=== PATIENT | male | born 1950 | race Native Hawaiian/Other Pacific Islander ===

== ENCOUNTER 2019-07-25 22:01 | Emergency (ER) | payer MEDICARE ==
[2019-07-25] MEDS ORDERED: ACETAMINOPHEN W/CODEINE 300-30 MG TAB PO ONE (23:31)
--- NOTE | 2019-07-25 23:50 | Emergency Department Report ---
ED General Adult HPI - General Chief complaint: Upper Respiratory Infection Stated complaint: SWEATS, SNEEZING, AND FEVER Time Seen by Provider: 07/25/19 23:30 Source: patient Mode of arrival: Ambulatory Limitations: Language Barrier - History of Present Illness Initial comments: Mr. Liu is a 68 y/o male with hx of hypertension and chronic br onchitis , last tx in this ed 2 weeks ago for same, states he felt better for a few days but symptoms are back. Symptoms described as nasal and sinus congestion, frontal sinus pressure, night sweats, persistent dry cough and upper back pain for the last 1 month . Patient denies dizziness, syncope, chest pain, shortness of breath, abdominal pain, nausea, vomiting, syncope, palpitations, sore throat, change in vision. There is no wheezing or sob. Vital signs noted normal at this time. Pt states unable to follow up with pcp. Onset/Timin -: month(s) Location: head (congestion), chest (cough, ) Severity scale (0 -10): 4 Quality: aching Consistency: intermittent Improves with: none Worsens with: movement Associated Symptoms: cough. denies: confusion, chest pain, diaphoresis, fever/chills, headaches, nausea/vomiting, rash, shortness of breath, syncope, weakness Treatments Prior to Arrival: none - Related Data Previous Rx's Medication Instructions Recorded Last Taken Type Albuterol Sulfate [Proventil Hfa] 1 - 2 puff IH Q6H PRN #1 inh 07/11/19 Unknown Rx Benzonatate [Tessalon Perles] 100 mg PO Q8HR #30 capsule 07/11/19 Unknown Rx Cetirizine HCl [Zyrtec 10mg tab] 10 mg PO DAILY #30 tablet 07/11/19 Unknown Rx DOXYCYCLINE Hyclate [Vibramycin 100 mg PO Q12HR #20 capsule 07/11/19 Unknown Rx CAP] methylPREDNISolone [Medrol 4MG 4 mg PO DAILY #21 tab.ds.pk 07/11/19 Unknown Rx DOSEPAK (21 tabs)] Acetaminophen [Acetaminophen TAB] 1,000 mg PO Q6HR PRN #30 tablet 07/26/19 Unknown Rx Albuterol INH(or & Nicu Only) 2 puff IH QID PRN #8.5 gram 07/26/19 Unknown Rx [ProAir HFA Inhaler] Azithromycin [Zithromax Z-CARMELITA] 250 mg PO DAILY #6 tab 07/26/19 Unknown Rx Benzonatate [Tessalon Perles] 100 mg PO Q8HR PRN #30 capsule 07/26/19 Unknown Rx predniSONE [Deltasone] 40 mg PO DAILY 5 Days #10 tablet 07/26/19 Unknown Rx Allergies Allergy/AdvReac Type Severity Reaction Status Date / Time Penicillins Allergy Dizziness Verified 07/11/19 04:47 ED Review of Systems ROS: Stated complaint: SWEATS, SNEEZING, AND FEVER Other details as noted in HPI Constitutional: denies: chills, fever Eyes: denies: eye pain, eye discharge, vision change ENT: congestion Respiratory: cough. denies: shortness of breath, wheezing Cardiovascular: denies: chest pain, palpitations Endocrine: no symptoms reported Gastrointestinal: denies: abdominal pain, nausea, vomiting, diarrhea Genitourinary: denies: urgency, dysuria Musculoskeletal: denies: back pain, joint swelling, arthralgia Skin: denies: rash, lesions Neurological: denies: headache, weakness, paresthesias Psychiatric: denies: anxiety, depression Hematological/Lymphatic: denies: easy bleeding, easy bruising ED Past Medical Hx - Past Medical History Previous Medical History?: Yes Hx Hypertension: Yes - Surgical History Past Surgical History?: Yes Hx Cholecystectomy: Yes - Social History Smoking Status: Never Smoker - Medications Home Medications: Home Medications Medication Instructions Recorded Confirmed Last Taken Type Albuterol Sulfate [Proventil Hfa] 1 - 2 puff IH Q6H PRN #1 inh 07/11/19 Unknown Rx Benzonatate [Tessalon Perles] 100 mg PO Q8HR #30 capsule 07/11/19 Unknown Rx Cetirizine HCl [Zyrtec 10mg tab] 10 mg PO DAILY #30 tablet 07/11/19 Unknown Rx DOXYCYCLINE Hyclate [Vibramycin 100 mg PO Q12HR #20 capsule 07/11/19 Unknown Rx CAP] methylPREDNISolone [Medrol 4MG 4 mg PO DAILY #21 tab.ds.pk 07/11/19 Unknown Rx DOSEPAK (21 tabs)] Acetaminophen [Acetaminophen TAB] 1,000 mg PO Q6HR PRN #30 tablet 07/26/19 Unknown Rx Albuterol INH(or & Nicu Only) 2 puff IH QID PRN #8.5 gram 07/26/19 Unknown Rx [ProAir HFA Inhaler] Azithromycin [Zithromax Z-CARMELITA] 250 mg PO DAILY #6 tab 07/26/19 Unknown Rx Benzonatate [Tessalon Perles] 100 mg PO Q8HR PRN #30 capsule 07/26/19 Unknown Rx predniSONE [Deltasone] 40 mg PO DAILY 5 Days #10 tablet 07/26/19 Unknown Rx ED Physical Exam - General Limitations: Language Barrier General appearance: alert, in no apparent distress - Head Head exam: Present: atraumatic, normocephalic - Eye Eye exam: Present: normal appearance, PERRL, EOMI Pupils: Present: normal accommodation - ENT ENT exam: Present: normal exam, normal orophraynx, mucous membranes moist, TM's normal bilaterally, normal external ear exam - Expanded ENT Exam Expanded Ear exam: Present: normal external inspection Throat exam: Positive: normal inspection - Neck Neck exam: Present: normal inspection - Respiratory Respiratory exam: Present: normal lung sounds bilaterally, wheezes. Absent: respiratory distress, rales, rhonchi, stridor, chest wall tenderness, prolonged expiratory - Cardiovascular Cardiovascular Exam: Present: regular rate, normal rhythm, normal heart sounds. Absent: systolic murmur, diastolic murmur, rubs, gallop - GI/Abdominal GI/Abdominal exam: Present: soft, normal bowel sounds. Absent: distended, tenderness, bruit, hernia - Rectal Rectal exam: Present: deferred - Extremities Exam Extremities exam: Present: normal inspection, full ROM, normal capillary refill. Absent: tenderness - Back Exam Back exam: Present: normal inspection, full ROM. Absent: CVA tenderness (R), CVA tenderness (L) - Neurological Exam Neurological exam: Present: alert, oriented X3, CN II-XII intact, normal gait - Psychiatric Psychiatric exam: Present: normal affect, normal mood - Skin Skin exam: Present: warm, dry, intact, normal color. Absent: rash ED Course Vital Signs 07/25/19 22:56 Temperature 98.3 F Pulse Rate 94 H Respiratory 18 Rate Blood Pressure 125/82 O2 Sat by Pulse 95 Oximetry ED Medical Decision Making - Radiology Data Radiology results: report reviewed, image reviewed Findings Reporting MD: Yanique Moran Dictation Time: July 25, 2019 23:00 [employer] Portfolio Advisor: Not available [employer] Boat Deckhand Date: CHEST 2 VIEWS INDICATION / CLINICAL INFORMATION: Cough. COMPARISON: 07/11/2019 FINDINGS: SUPPORT DEVICES: None. HEART / MEDIASTINUM: No significant abnormality. LUNGS / PLEURA: There is diffuse bilateral peribronchial cuffing, usually indicative of reactive airways disease or bronchitis. No evidence for pneumonia or pleural effusion. No pneumothorax. ADDITIONAL FINDINGS: No significant additional findings. IMPRESSION: 1. Prominent bilateral peribronchial cuffing, unchanged from prior exam. This is usually indicative of bronchitis and/or reactive airways disease. No evidence of pneumonia at this time. Signer Name: Yanique Moran MD Signed: 07/25/2019 11:00 PM Workstation Name: [id number] - Medical Decision Making cxr improved from previous , bilat brochial cuffing no infiltrates, pt symptoms are improved with medication given in ed, plan, azithromycin, Albuterol inhaler, , tylenol prn, follow up with primary care doctor in 2-3 days , return to emergency if symptoms worsen, pt verbalized agreement and understanding of same. Critical care attestation.: If time is entered above; I have spent that time in minutes in the direct care of this critically ill patient, excluding procedure time. ED Disposition Clinical Impression: Bronchitis Disposition: DC-01 TO HOME OR SELFCARE Is pt being admited?: No Does the pt Need Aspirin: No Condition: Stable Instructions: Chronic Bronchitis (ED) Prescriptions: Acetaminophen [Acetaminophen TAB] 1,000 mg PO Q6HR PRN #30 tablet PRN Reason: pain predniSONE [Deltasone] 40 mg PO DAILY 5 Days #10 tablet Albuterol INH(or & Nicu Only) [ProAir HFA Inhaler] 2 puff IH QID PRN #8.5 gram PRN Reason: Shortness Of Breath Benzonatate [Tessalon Perles] 100 mg PO Q8HR PRN #30 capsule PRN Reason: Cough Azithromycin [Zithromax Z-CARMELITA] 250 mg PO DAILY #6 tab Referrals: CELSO RASMUSSEN MD [Staff Physician] - 3-5 Days Forms: Work/School Release Form(ED) Time of Disposition: 02:27
[2019-07-26 00:02] VITALS: BP 125/82
--- NOTE | 2019-07-26 00:04 | XRay Report ---
CHEST 2 VIEWS INDICATION / CLINICAL INFORMATION: Cough. COMPARISON: 07/11/2019 FINDINGS: SUPPORT DEVICES: None. HEART / MEDIASTINUM: No significant abnormality. LUNGS / PLEURA: There is diffuse bilateral peribronchial cuffing, usually indicative of reactive airw ays disease or bronchitis. No evidence for pneumonia or pleural effusion. No pneumothorax. ADDITIONAL FINDINGS: No significant additional findings. IMPRESSION: 1. Prominent bilateral peribronchial cuffing, unchanged from prior exam. This is usually indicative o f bronchitis and/or reactive airways disease. No evidence of pneumonia at this time. Signer Name: Yanique Moran MD Signed: 07/26/2019 12:00 AM Workstation Name: [id number]
[2019-07-26] MEDS ORDERED: dexAMETHasone 20 MG/5 ML VIAL IV ONE (00:48)
[2019-07-26] MEDS ORDERED: IPRATROPIUM/ALBUTEROL SULFATE 3 ML AMPUL.NEB IH ONE (00:49)
== END 2019-07-26 02:48 | disposition home or self-care (01) ==
LOC: ED 22:01
DX: J40 Bronchitis, not specified as acute or chronic (principal); Z79.899 Other long term (current) drug therapy; Z90.49 Acquired absence of other specified parts of digestive tract; Z88.0 Allergy status to penicillin
CPT/HCPCS: 71046; 94640; 96374; 99283; J1100; 94644